=== PATIENT | male | born 1985 | race Caucasian/White ===

== ENCOUNTER 2021-03-27 11:53 | Outpatient (REF) | payer OTHER, SELFPAY | END 2021-03-27 11:54 | disposition home or self-care (01) | LOC: HO.WFDLDS 11:53 | PROVIDERS: Visit Provider Internal Medicine | DX: U07.1 COVID-19 (principal); Z20.822 Contact with and (suspected) exposure to COVID-19 | CPT/HCPCS: C9803; U0003; U0005 ==